=== PATIENT | male | born 1955 | race Caucasian/White ===

== ENCOUNTER 2020-04-27 13:32 | Emergency (ER) | payer OTHER ==
[~2020-04-27] VITALS: Ht 190.5 cm; Wt 104.3 kg
[2020-04-27] MEDS ORDERED: CLONAZEPAM 0.50.5 M1 PO (13:42)
[2020-04-27] MEDS ORDERED: VENLAFAXINE HC150 M1 PO (13:42)
[2020-04-27] MEDS ORDERED: BUSPIRONE HCL15 MG PO (13:42)
[2020-04-27 14:29] LABS: ABSOLUTE NEUTROPHILS 9.7 thou/uL (1.4-8.2); BASOPHILS 0.2 % (0.0-2.0); EOSINOPHILS 1.2 % (0.0-3.0); HEMATOCRIT 44.8 % (42.0-52.0); HEMOGLOBIN 14.9 gm/dL (14.0-18.0); LYMPHOCYTES 10.8 % (24.0-44.0); MCH 29.8 pg (26.0-34.0); MCHC 33.3 g/dL (28.0-37.0); MCV 89.5 fL (80.0-100.0); MONOCYTES 13.8 % (1.0-8.0); PLATELET COUNT 234 thou/uL (150-400); RBC 5.01 mil/uL (4.50-6.00); RDW 13.2 % (10.5-14.5); WBC 13.1 thou/uL (4.0-11.0)
[2020-04-27 14:45] LABS: ANION GAP 5 mmol/L (7-16); BUN 19 mg/dL (7-18); CALCIUM 8.9 mg/dL (8.5-10.1); CHLORIDE 104 mmol/L (98-107); CO2 29 mmol/L (21-32); CREATININE 1.2 mg/dL (0.7-1.3); GLUCOSE 89 mg/dL (74-106); POTASSIUM 4.4 mmol/L (3.5-5.1); SODIUM 138 mmol/L (136-145)
[2020-04-27 14:56] LABS: ALBUMIN 3.4 g/dL (3.4-5.0); LIPASE 80 U/L (73-393); SGOT 20 U/L (15-37); SGPT 32 U/L (16-63); TOTAL BILIRUBIN 0.4 mg/dL (0.2-1.0); TOTAL PROTEIN 6.9 g/dL (6.4-8.2); TROPONIN-I <0.06 ng/mL (<0.06)
[2020-04-27 15:27] LABS: URINE BILIRUBIN NEGATIVE (Negative); URINE BLOOD 3+ (Negative); URINE CLARITY CLEAR; URINE COLOR YELLOW; URINE GLUCOSE-RANDOM* NEGATIVE (Negative); URINE KETONES NEGATIVE (Negative); URINE LEUKOCYTES-REFLEX NEGATIVE (Negative); URINE NITRITE-REFLEX NEGATIVE (Negative); URINE PROTEIN (DIPSTICK) NEGATIVE (Negative); URINE SPECIFIC GRAVITY 1.025 (1.005-1.035)
[2020-04-27 15:40] LABS: SQUAMOUS None Seen /LPF (0-3); URINE WBC-REFLEX 0-5 Rare /HPF (0-5)
[2020-04-27 15:41] LABS: BACTERIA-REFLEX 1-9 Few /HPF (None Seen); CASTS None Seen /LPF (None Seen); CRYSTALS None Seen /LPF (None Seen); URINE RBC 3-10 Few /HPF (0-2)
[2020-04-27] MEDS ORDERED: DOXYCYCLINE 10100 MG PO (16:14)
[2020-04-27] MEDS ORDERED: AUGMENTIN 875-1 EACH PO (16:14)
[2020-04-27] MEDS ORDERED: NORCO5 PO (16:28)
[2020-04-27 16:55] VITALS: BP 115/70
== END 2020-04-27 16:57 | disposition home or self-care (01) ==
LOC: ER 13:32
PROVIDERS: Emergency Medicine
DX: J18.9 Pneumonia, unspecified organism (principal); R10.11 Right upper quadrant pain; F32.9 Major depressive disorder, single episode, unspecified; Z79.899 Other long term (current) drug therapy; Z87.891 Personal history of nicotine dependence